=== PATIENT | female | born 1985 | race Caucasian/White ===

== ENCOUNTER → 2017-02-25 | Outpatient (REF) | payer OTHER ==
[~2017-02-25] MED LIST: MOTR200T44 PO; Prenatal Vitamin PO; TYLE325T5 PO
== END ==
LOC: M SFHCLERA 17:39
PROVIDERS: ATTEND Nurse Practitioner Family
DX: J02.9 Acute pharyngitis, unspecified (principal)

== ENCOUNTER → 2017-09-17 | Outpatient (REF) | payer OTHER | LOC: M SFHCLERA 11:47 | DX: J02.9 Acute pharyngitis, unspecified (principal) ==

== ENCOUNTER → 2018-05-31 | Outpatient (REF) | payer OTHER | LOC: M SFHCLERA 11:14 | PROVIDERS: ATTEND Physician Assistant | DX: J02.9 Acute pharyngitis, unspecified (principal) ==

== ENCOUNTER → 2018-07-09 | Outpatient (REF) | payer OTHER | LOC: M SFHCLERA 21:06 | PROVIDERS: ATTEND Nurse Practitioner Family | DX: J00 Acute nasopharyngitis [common cold] (principal) ==

== ENCOUNTER → 2018-08-25 | Outpatient (CLI) | payer OTHER ==
--- NOTE | 2018-08-26 01:25 | REP ---
Clinical: Left shoulder pain . Technique: Internal rotation, external rotation, and Y view. Findings: No acute fracture or dislocation. The acromioclavicular and glenohumeral joints are intact. No periarticular calcifications or degenerative changes are appreciated. Sub acromial space is normal. Surrounding soft tissues are unremarkable. Impression: Normal left shoulder radiographs. Electronically Signed by Roberto Salter MD 08/26/2018 01:17 A
== END ==
LOC: M WUC 19:13
PROVIDERS: ATTEND Physician Assistant
DX: M25.512 Pain in left shoulder (principal)

== ENCOUNTER → 2020-01-08 | Outpatient (REF) | payer OTHER | LOC: M WUC 20:00 | PROVIDERS: ATTEND Nurse Practitioner Family | DX: J02.9 Acute pharyngitis, unspecified (principal) ==

== ENCOUNTER → 2021-11-08 | Outpatient (REF) | payer OTHER ==
[2021-11-08 16:52] LABS: HEMATOCRIT 37.5 % (36.0-47.0); HEMOGLOBIN 11.9 g/dl (12.0-15.5); MEAN CORPUSCULAR HEMOGLOBIN 24.8 pg (27.0-33.0); MEAN CORPUSCULAR HGB CONC 31.7 g/dl (32.0-36.5); MEAN CORPUSCULAR VOLUME 78.1 fl (80.0-96.0); PLATELET COUNT, AUTOMATED 377 10^3/uL (150-450); WHITE BLOOD COUNT 9.6 10^3/uL (4.0-10.0)
[2021-11-08 18:46] LABS: HCG, SERUM QUANTITATIVE 1809 MIU/ML; HEPATITIS B SURFACE ANTIGEN NEGATIVE (NEGATIVE); HEPATITIS C VIRUS ABY INDEX < 0.0 INDEX (<0.8); HIV 1&2 SCREEN CENTAUR NEGATIVE (NEGATIVE)
== END ==
LOC: M LAB REF 16:12
PROVIDERS: ATTEND Obstetrics & Gynecology
DX: Z32.01 Encounter for pregnancy test, result positive (principal); O36.80X0 Pregnancy with inconclusive fetal viability, not applicable or unspecified

== ENCOUNTER 2022-03-29 13:03 | Outpatient (CLI) | payer OTHER ==
[~2022-03-29] VITALS: Ht 170.2 cm; Wt 114.8 kg
[2022-03-29 13:26] VITALS: BP 122/76
[2022-03-29] MEDS ORDERED: HOME MED LIST COMPLETE! XX SCH (13:30)
[2022-03-29 17:45] LABS: GC DNA AMPLIFICATION NEGATIVE (NEGATIVE)
== END 2022-03-29 16:10 | disposition home or self-care (01) ==
LOC: M LDO 13:03
PROVIDERS: ATTEND Obstetrics & Gynecology
DX: O26.892 Other specified pregnancy related conditions, second trimester (principal); N89.8 Other specified noninflammatory disorders of vagina; Z3A.25 25 weeks gestation of pregnancy
CPT/HCPCS: 59025; 81000; 87086; 87810; 87850; G0378; G0463

== ENCOUNTER → 2022-04-12 | Outpatient (CLI) | payer OTHER ==
[2022-04-12 10:45] LABS: HEMATOCRIT 32.3 % (36.0-47.0); HEMOGLOBIN 10.2 g/dl (12.0-15.5); MEAN CORPUSCULAR HEMOGLOBIN 24.6 pg (27.0-33.0); MEAN CORPUSCULAR HGB CONC 31.6 g/dl (32.0-36.5); PLATELET COUNT, AUTOMATED 337 10^3/uL (150-450); RED BLOOD COUNT 4.14 10^6/uL (4.00-5.40); WHITE BLOOD COUNT 10.9 10^3/uL (4.0-10.0)
== END ==
LOC: M LAB 09:12
PROVIDERS: ATTEND Physician Assistant
DX: Z34.82 Encounter for supervision of other normal pregnancy, second trimester (principal); Z3A.00 Weeks of gestation of pregnancy not specified

== ENCOUNTER → 2022-06-13 | Outpatient (REF) | payer OTHER | LOC: M LAB REF 16:21 | PROVIDERS: ATTEND Obstetrics & Gynecology | DX: Z36.85 Encounter for antenatal screening for Streptococcus B (principal) ==

== ENCOUNTER 2022-06-29 11:53 | Inpatient (IN) | payer OTHER ==
[2022-06-29] VITALS (15 sets, daily range): BP systolic 113–140; BP diastolic 58–86
[~2022-06-29] VITALS: Ht 170.2 cm; Wt 119.8 kg
[2022-06-29] MEDS ORDERED: HOME MED LIST COMPLETE! XX SCH (12:20)
[2022-06-29] MEDS ORDERED: IRON15CH PO (12:20)
[2022-06-29] MEDS ORDERED: ACET-897 PO (12:20)
[2022-06-29 13:00] LABS: HEMATOCRIT 32.9 % (36.0-47.0); HEMOGLOBIN 10.4 g/dl (12.0-15.5); MEAN CORPUSCULAR HEMOGLOBIN 24.4 pg (27.0-33.0); MEAN CORPUSCULAR HGB CONC 31.6 g/dl (32.0-36.5); PLATELET COUNT, AUTOMATED 336 10^3/uL (150-450); RED BLOOD COUNT 4.27 10^6/uL (4.00-5.40); WHITE BLOOD COUNT 11.7 10^3/uL (4.0-10.0)
[2022-06-29 13:23] LABS: TOTAL PROTEIN,RANDOM URINE 37.6 MG/DL (0.0-14.0)
[2022-06-29 13:27] LABS: LDH LACTATE DEHYDROGENASE 177 U/L (120-246)
[2022-06-29 13:28] LABS: ALT/SGPT 13 U/L (7.0-40); AST/SGOT 15 U/L (<34); BILIRUBIN,TOTAL 0.3 MG/DL (0.3-1.2); CREATININE FOR GFR 0.53 MG/DL (0.55-1.30); GLOMERULAR FILTRATION RATE > 60.0 (>60)
[2022-06-29] MEDS ORDERED: CARBOPROST TROMETHAMINE 250 MCG/ML AMP IM PRN (14:10)
[2022-06-29] MEDS ORDERED: OXYTOCIN INJ 10UNITS/ML 1ML VIAL IM PRN (14:10)
[2022-06-29] MEDS ORDERED: OXYTOCIN DRIP 30 UNITS in IV 1 EA IV PRN ×4 (14:10)
[2022-06-29] MEDS ORDERED: LIDOCAINE 1% MDV 20ML VIAL INFIL PRN (14:10)
[2022-06-29] MEDS ORDERED: TRANEXAMIC ACID INJection 1,000 MG in NS 100 ML IV PRN (14:10)
[2022-06-29] MEDS: miSOPROStol 50MCG 1/2 TABLET PO SCH ×3 (15:17→23:24)
[2022-06-29] MEDS ORDERED: ONDANSETRON 4MG 2ML VIAL IV SCH (17:00)
[2022-06-29] MEDS ORDERED: ONDANSETRON 4MG 2ML VIAL IV PRN (20:00)
[2022-06-30] VITALS (67 sets, daily range): BP systolic 112–201; BP diastolic 54–110
[2022-06-30] MEDS ORDERED: ACETAMINOPHEN 500 MG TAB PO PRN (03:35)
[2022-06-30] MEDS ORDERED: OXYTOCIN DRIP 30 UNITS in IV 1 EA IV SCH (03:35)
[2022-06-30] MEDS: LR 1,000 ML IV SCH ×2 (03:48→11:49)
[2022-06-30] MEDS ORDERED: NALOXONE INJ 0.4MG/1ML VIAL IV PRN (21:25)
[2022-06-30] MEDS ORDERED: ONDANSETRON 4MG 2ML VIAL IV PRN (21:25)
[2022-06-30] MEDS ORDERED: diphenhydrAMINE 50MG/ML VIAL IV PRN (21:25)
[2022-06-30] MEDS ORDERED: EPIDURAL/PCA KEYS XX PRN (21:25)
[2022-06-30] MEDS ORDERED: ePHEDrine SULFATE 25 MG/5 ML(5MG/ML) SYRINGE IVP PRN (21:25)
[2022-06-30] MEDS ORDERED: FENTANYL/ROPIVACAINE/NACL BAG 100 ML EPIDURAL SCH (21:25)
[2022-06-30] MEDS ORDERED: LR 500 ML IV PRN (21:25)
[2022-06-30] MEDS ORDERED: METHYLERGONOVINE MALEATE 0.2 MG TAB PO PRN (22:45)
[2022-06-30] MEDS ORDERED: DIBUCAINE 1% OINTMENT 30GM TOP PRN (22:45)
[2022-06-30] MEDS ORDERED: RHOGAM 300MCG (1500IU) INJ IM SCH (22:45)
[2022-06-30] MEDS: IBUPROFEN 600MG TAB PO PRN (23:35)
[2022-06-30] MEDS: ACETAMINOPHEN 500 MG TAB PO PRN (23:35)
[2022-07-01 00:55] VITALS: BP 143/69
[2022-07-01 06:00] VITALS: BP 138/78
[2022-07-01] MEDS: PRENATAL VITAMINS CHEWABLE TABLET PO SCH (09:25)
[2022-07-01] MEDS: IBUPROFEN 600MG TAB PO PRN ×2 (15:36→23:07)
[2022-07-01 18:00] VITALS: BP 146/80
[2022-07-01] MEDS: DOCUSATE SODIUM 100MG CAPSULE PO PRN (20:04)
[2022-07-01] MEDS: ACETAMINOPHEN 500 MG TAB PO PRN (20:04)
[2022-07-02 06:00] VITALS: BP 142/75
[2022-07-02 06:35] VITALS: BP 141/91
[2022-07-02 08:11] LABS: HEMOGLOBIN 9.8 g/dl (12.0-15.5); MEAN CORPUSCULAR HEMOGLOBIN 24.2 pg (27.0-33.0); MEAN CORPUSCULAR HGB CONC 30.6 g/dl (32.0-36.5); PLATELET COUNT, AUTOMATED 291 10^3/uL (150-450); RED BLOOD COUNT 4.05 10^6/uL (4.00-5.40); WHITE BLOOD COUNT 10.2 10^3/uL (4.0-10.0)
[2022-07-02 08:43] LABS: ALBUMIN 2.3 G/DL (3.2-5.2); ALKALINE PHOSPHATASE 124 U/L (46-116); ALT/SGPT 14 U/L (7.0-40); AST/SGOT 17 U/L (<34); BILIRUBIN,TOTAL 0.2 MG/DL (0.3-1.2); BLOOD UREA NITROGEN 7 MG/DL (9-23); CALCIUM LEVEL 7.9 MG/DL (8.5-10.1); CARBON DIOXIDE LEVEL 23 MMOL/L (20-31); CHLORIDE LEVEL 106 MMOL/L (98-107); CREATININE FOR GFR 0.57 MG/DL (0.55-1.30); GLOMERULAR FILTRATION RATE > 60.0 (>60); GLUCOSE, FASTING 69 MG/DL (60-100); POTASSIUM SERUM 3.9 MMOL/L (3.5-5.1); SODIUM LEVEL 138 MMOL/L (136-145); TOTAL PROTEIN 5.3 G/DL (5.7-8.2)
[2022-07-02] MEDS: PRENATAL VITAMINS CHEWABLE TABLET PO SCH (08:46)
[2022-07-02] MEDS: ACETAMINOPHEN 500 MG TAB PO PRN (08:48)
[2022-07-02 08:49] VITALS: BP 141/86
[2022-07-02] MEDS: LABETALOL 100MG TAB PO SCH ×2 (08:49→21:07)
[2022-07-02] MEDS ORDERED: MEASLES,MUMPS,RUBELLA VACCINE INJ (MMR-II) SC.IMMUN ONE (09:00)
[2022-07-02] MEDS: IBUPROFEN 600MG TAB PO PRN (11:20)
[2022-07-02] MEDS: FIORICET TAB PO PRN ×2 (15:04→22:14)
[2022-07-02 18:00] VITALS: BP 148/70
[2022-07-02] MEDS: DOCUSATE SODIUM 100MG CAPSULE PO PRN (21:18)
[2022-07-03] MEDS: FIORICET TAB PO PRN (04:55)
[2022-07-03] MEDS: PRENATAL VITAMINS CHEWABLE TABLET PO SCH (08:53)
[2022-07-03 08:54] VITALS: BP 148/70
[2022-07-03] MEDS: LABETALOL 100MG TAB PO SCH (08:54)
[2022-07-03] MEDS ORDERED: LABE100T6 PO (12:35)
== END 2022-07-03 14:55 | disposition home or self-care (01) | DRG 560 ==
LOC: M LDO 11:53 → M LDI 14:00 → M OBS 07-01 01:39
PROVIDERS: ADMIT Advanced Practice Midwife; ATTEND Obstetrics & Gynecology
PROC: 3E0P7GC Introduction of Other Therapeutic Substance into Female Reproductive, Via Natural or Artificial Opening (ICD-10-PCS; 2022-06-29)
PROC: 10E0XZZ Delivery of Products of Conception, External Approach (ICD-10-PCS; principal; 2022-06-30)
PROC: 0HQ9XZZ Repair Perineum Skin, External Approach (ICD-10-PCS; 2022-06-30)
PROC: 10907ZC Drainage of Amniotic Fluid, Therapeutic from Products of Conception, Via Natural or Artificial Opening (ICD-10-PCS; 2022-06-30)
DX: O14.04 Mild to moderate pre-eclampsia, complicating childbirth (principal); E66.9 Obesity, unspecified; Z3A.38 38 weeks gestation of pregnancy; O99.214 Obesity complicating childbirth; O69.81X0 Labor and delivery complicated by cord around neck, without compression, not applicable or unspecified; O70.0 First degree perineal laceration during delivery; O09.523 Supervision of elderly multigravida, third trimester; Z37.0 Single live birth

== ENCOUNTER → 2022-07-11 | Outpatient (REF) | payer OTHER ==
[~2022-07-11] MED LIST changes: +ACET-897 PO; +IRON15CH PO; +LABE100T6 PO
[2022-07-11 17:41] LABS: BASO # 0.1 10^3/uL (0.0-0.2); BASO % 0.7 % (0.0-1.0); EOS # 0.2 10^3/uL (0.0-0.5); EOS % 1.8 % (0.0-3.0); HEMATOCRIT 43.8 % (36.0-47.0); LYMPH # 1.8 10^3/uL (1.5-5.0); LYMPH % 22.3 % (24.0-44.0); MEAN CORPUSCULAR HEMOGLOBIN 23.8 pg (27.0-33.0); MEAN CORPUSCULAR HGB CONC 29.7 g/dl (32.0-36.5); MEAN CORPUSCULAR VOLUME 80.2 fl (80.0-96.0); MONO # 0.5 10^3/uL (0.0-0.8); MONO % 6.4 % (2.0-8.0); NEUTROPHILS # 5.6 10^3/uL (1.5-8.5); NEUTROPHILS % 68.2 % (36.0-66.0); PLATELET COUNT, AUTOMATED 482 10^3/uL (150-450); RED BLOOD COUNT 5.46 10^6/uL (4.00-5.40); WHITE BLOOD COUNT 8.2 10^3/uL (4.0-10.0)
== END ==
LOC: M LAB REF 16:42
PROVIDERS: ATTEND Advanced Practice Midwife
DX: Z39.2 Encounter for routine postpartum follow-up (principal)